=== PATIENT | female | born 1980 | race African-American/Black ===

== ENCOUNTER 2017-03-21 09:46 | Outpatient (CLI) ==
[2017-03-21 10:36] LABS: CHOL/HDL RATIO 3.7 (4.5-5.5)
== END 2017-03-21 09:47 | disposition home or self-care (01) ==
LOC: LAB 09:46
PROVIDERS: ATTEND Family Medicine
DX: Z00.00 Encounter for general adult medical examination without abnormal findings (principal)
CPT/HCPCS: 36415; 80061; 82947

== ENCOUNTER 2018-06-02 17:08 | Emergency (ER) ==
[2018-06-02 17:16] VITALS: BP 155/94; TEMP 98.9; BMI 32.0
--- NOTE | 2018-06-02 18:53 | ED.PDOC ---
General ED Provider: Dr. SHANIQUA RIVERA Chief Complaint: Dizziness Stated Complaint: Has experienced lightheadedness and dizziness for several weeks. Denies vertigo, LOC, Chest Pain . Time Seen by Physician: 18:40 Information Source: Patient Exam Limitations: No limitations Primary Care Provider: JOHNY OSORIO Nursing and Triage Documentation Reviewed and Agree: Yes Does patient meet sepsis criteria?: No System Inflammatory Response Syndrome: Not Applicable Sepsis Protocol: For patient's 13 years and over: Temp is 96.8 and below OR 101 and greater Pulse >90 BPM Resp >20/minute Acutely Altered Mental Status Are patient's symptoms suggestive of a new infection, such as: -Pneumonia -Skin, Soft Tissue -Endocarditis -UTI -Bone, Joint Infection -Implantable Device -Acute Abdominal Infection -Wound Infection -Meningitis -Blood Stream Catheter Infection -Unknown Neurological Complaint Exam - Dizziness Complaint/Exam Onset: Gradual Symptoms Are: Resolved Timing: Intermittent Episodes Lasting: Seconds Current Severity: None Character: Reports: Lightheaded, Dizzy Alleviating: Reports: Rest, Lying down Associated Signs and Symptoms: Reports: Nausea Related History: Similar episode Cardiac Risk Factors: Reports: None CVA Risk Factors: Reports: None Related Surgical History: Reports: None JVD Present: No Carotid Bruit Present: No Nystagmus Present: No Gag Reflex Present: No Meningeal Signs Positive: No Focal Weakness: Present: None Focal Sensory Loss: Present: None Gait: Normal Declna-nd-Xcks: Normal Findings Differential Diagnoses: Dysrhythmia, Labyrinthitis, Vasovagal reaction, Other ( Dizziness) Review of Systems - Review Of Systems Constitutional: Reports: No symptoms Eyes: Reports: No symptoms Ears, Nose, Mouth, Throat: Reports: No symptoms Respiratory: Reports: No symptoms Cardiac: Reports: No symptoms GI: Reports: No symptoms : Reports: No symptoms Musculoskeletal: Reports: No symptoms Skin: Reports: No symptoms Neurological: Reports: No symptoms Endocrine: Reports: No symptoms Hematologic/Lymphatic: Reports: No symptoms All Other Systems: Reviewed and Negative Past Medical History - Past Medical History Previously Healthy: Yes Endocrine: Reports: None Cardiovascular: Reports: None Respiratory: Reports: None Hematological: Reports: None Gastrointestinal: Reports: None Genitourinary: Reports: None Neuro/Psych: Reports: None Musculoskeletal: Reports: None Cancer: Reports: None Last Menstrual Period: last week - Surgical History General Surgical History: Reports: None - Family History Family History: Reports: None - Social History Smoking Status: Never smoker Hx Substance Use: No Alcohol Screening: None Physical Exam - Physical Exam Appearance: Well-appearing, No pain distress, Well-nourished Eyes: MEÑO, EOMI, Conjunctiva clear ENT: Ears normal, Nose normal, Oropharynx normal Respiratory: Airway patent, Breath sounds clear, Breath sounds equal, Respirations nonlabored Cardiovascular: RRR, Pulses normal, No rub, No murmur GI/: Soft, Nontender, No masses, Bowel sounds normal, No Organomegaly Musculoskeletal: Normal strength, ROM intact, No edema, No calf tenderness Skin: Warm, Dry, Normal color Neurological: Sensation intact, Motor intact, Reflexes intact, Cranial nerves intact, Alert, Oriented Psychiatric: Affect appropriate, Mood appropriate Critical Care Note - Critical Care Note Total Time (mins): 0 Course - Course Orders, Labs, Meds: Orders Category Date Time Status EKG-(ED ONLY) Stat CARDIO 06/02/18 18:54 Ordered CBC W/ AUTO DIFF Stat LAB 06/02/18 18:55 Ordered CMP [COMPREHENSIVE METABOLIC PANEL] Stat LAB 06/02/18 18:55 Ordered UA [URINALYSIS C & S IF INDICATED] Stat LAB 06/02/18 19:23 Ordered URINE Stat LAB 06/02/18 19:23 Ordered Vital Signs: Temp Pulse Resp BP Pulse Ox 06/02/18 17:09 98.9 F 76 20 155/94 H 99 Departure - Departure Time of Disposition: 19:20 Disposition: AMA Discharge Problem: Dizziness Instructions: Dizziness (ED) Condition: Good Pt referred to PMD for follow-up: Yes IPMP verified?: No Additional Instructions: Recommended diagnostic studies including Lab, EKG, CT Scan Brain Patient refusing testing and prefers to go home. Encourage patient to follow up with PCP next Week for additional eval. Suggest Rx Meclizine 25 mg may take 1 every 8 hrs for dizziness Allergies/Adverse Reactions: Allergies No Known Allergies Allergy (Unverified 06/02/18 17:16) Home Medications: Ambulatory Orders Meclizine HCl [Motion Sickness Relief] 25 mg PO TID PRN #10 tab.chew 06/02/18 Disposition Discussed With: Patient (Signed out AMA)
[2018-06-02 19:31] LABS: URINE PREGNANCY TEST NEGATIVE (NEGATIVE)
== END 2018-06-02 19:47 | disposition left against medical advice (07) ==
LOC: ED 17:08
DX: R42 Dizziness and giddiness (principal)
CPT/HCPCS: 81001; 81025; 99282